=== PATIENT | male | born 1960 | race Caucasian/White ===

== ENCOUNTER 2018-08-23 12:11 | Outpatient (REF) | payer BC, SELFPAY ==
[2018-08-24 10:14] LABS: Lyme Ab w Rflx to Lyme Confirm Negative
[2018-08-25 20:04] LABS: Anaplasma phagocytophilum Negative (Negative); B. miyamotoi PCR Negative (Negative); Babesia divergens/MO-1 Negative (Negative); Babesia duncani Negative (Negative); Babesia microti Negative (Negative); Ehrlichia chaffeensis Negative (Negative); Ehrlichia ewingii/canis Negative (Negative); Ehrlichia muris eauclairensis Negative (Negative)
== END 2018-08-23 12:31 ==
LOC: NCHCN 12:11
PROVIDERS: PCP Internal Medicine; Visit Provider Nurse Practitioner Family
DX: R53.83 Other fatigue (principal); M25.50 Pain in unspecified joint
CPT/HCPCS: 86618; 87798

== ENCOUNTER 2019-06-02 11:17 | Outpatient (REF) | payer BC, SELFPAY ==
[2019-06-02 21:01] LABS: Abs Immature Grans 0.01 k/cumm (0.0-0.09); Absolute Basophil Count 0.01 k/cumm (0.0-0.2); Absolute Eosinophil Count 0.11 k/cumm (0.0-0.7); Absolute Lymphocyte Count 0.92 k/cumm (1.2-3.4); Absolute Monocyte Count 0.65 k/cumm (0.11-0.7); Absolute Neutrophil Count 4.43 k/cumm (1.2-6.7); Basophils % 0.2; Eosinophils % 1.8; HCT 44.9 % (40.0-50.0); HGB 14.8 g/dL (13.5-17.5); Immature Grans % 0.2; Mean Corpuscular Hemoglobin 27.9 pg (27.0-33.0); Mean Corpuscular Volume 84.7 fL (80-95); Mean Platelet Volume 11.7 fL (8.0-11.0); Monocytes % 10.6; Neutrophils % 72.2; Platelet Count 215 x1000/uL (130-400); RBC Distribution Width 13.7 % (11.8-14.1); White Blood Cell Count 6.13 k/cumm (4.4-10.8)
[2019-06-02 21:05] LABS: ALT 61 U/L (12-78); AST 64 U/L (15-37); Albumin 4.1 g/dL (3.4-5.0); Alkaline Phosphatase 91 U/L (46-116); Anion Gap 12.6 mmol/L (3-11); BUN 15 mg/dL (7-18); Bilirubin, Total 0.6 mg/dL (0.2-1.0); CO2 24.4 mmol/L (21.0-32.0); CREATININE 1.26 mg/dL (0.70-1.30); Calcium 8.8 mg/dL (8.5-10.1); Chloride 101 mmol/L (98-107); Estimated GFR 58.58 (mL/min/1.73m2); Glucose 100 mg/dL (70-100); Sodium 138 mmol/L (136-145); Total Protein 7.5 g/dL (6.4-8.2)
[2019-06-05 11:40] LABS: Lyme Ab w Rflx to Lyme Confirm Negative
[2019-06-06 17:17] LABS: Anaplasma phagocytophilum Negative (Negative); B. miyamotoi PCR Negative (Negative); Babesia divergens/MO-1 Negative (Negative); Babesia duncani Negative (Negative); Babesia microti Negative (Negative); Ehrlichia chaffeensis Negative (Negative); Ehrlichia ewingii/canis Negative (Negative); Ehrlichia muris eauclairensis Negative (Negative)
== END 2019-06-02 11:37 ==
LOC: NCHCN 11:17
PROVIDERS: PCP Internal Medicine; Visit Provider Nurse Practitioner Family
DX: R50.9 Fever, unspecified (principal); M25.50 Pain in unspecified joint; M79.10 Myalgia, unspecified site
CPT/HCPCS: 80053; 87798; 85025; 86618

== ENCOUNTER 2020-03-22 10:05 | Outpatient (REF) | payer BC, SELFPAY ==
[2020-03-22 20:42] LABS: Abs Immature Grans 0.01 k/cumm (0.0-0.09); Absolute Basophil Count 0.01 k/cumm (0.0-0.2); Absolute Eosinophil Count 0.08 k/cumm (0.0-0.7); Absolute Lymphocyte Count 2.22 k/cumm (1.2-3.4); Absolute Monocyte Count 0.61 k/cumm (0.11-0.7); Absolute Neutrophil Count 3.37 k/cumm (1.2-6.7); Basophils % 0.2; Eosinophils % 1.3; HCT 46.1 % (40.0-50.0); HGB 15.4 g/dL (13.5-17.5); Immature Grans % 0.2 %; Lymphocytes % 35.2; Mean Corp. HGB Concentration 33.4 g/dL (32.0-36.0); Mean Corpuscular Hemoglobin 28.1 pg (27.0-33.0); Mean Platelet Volume 11.7 fL (8.0-11.0); Monocytes % 9.7; Neutrophils % 53.4; Platelet Count 300 x1000/uL (130-400); RBC 5.49 m/cumm (4.50-6.00); RBC Distribution Width 13.3 % (11.8-14.1)
[2020-03-22 20:47] LABS: ALT 41 U/L (16-63); AST 36 U/L (15-37); Albumin 4.6 g/dL (3.4-5.0); Alkaline Phosphatase 86 U/L (46-116); Anion Gap 6.7 mmol/L (3-11); BUN 23 mg/dL (7-18); Bilirubin, Total 0.9 mg/dL (0.2-1.0); CO2 27.3 mmol/L (21.0-32.0); CREATININE 1.31 mg/dL (0.70-1.30); Calcium 9.8 mg/dL (8.5-10.1); Calculated LDL 150 mg/dL (<100); Chloride 102 mmol/L (98-107); Cholesterol 230 mg/dL (<200); Estimated GFR 55.81 (mL/min/1.73m2); Glucose 90 mg/dL (74-106); HDL Cholesterol 60 mg/dL (40-60); Potassium 5.1 mmol/L (3.5-5.1); Sodium 136 mmol/L (136-145); Total Protein 7.9 g/dL (6.4-8.2); Triglyceride 102 mg/dL (<150)
[2020-03-22 21:10] LABS: Bilirubin Negative (Negative); Blood Negative (Negative); Clarity Clear (Clear); Glucose Negative (Negative); Ketones Negative (Negative); Leukocyte Esterase Negative (Negative); Nitrite Negative (Negative); Urobilinogen 0.2 EU/dL (Up TO 0.2); pH 5.5 (5-8)
== END 2020-03-22 10:25 ==
LOC: NCHCN 10:05
PROVIDERS: PCP Internal Medicine; Visit Provider Internal Medicine
DX: Z00.00 Encounter for general adult medical examination without abnormal findings (principal); E78.5 Hyperlipidemia, unspecified; N50.819 Testicular pain, unspecified
CPT/HCPCS: 80053; 80061; 81003; 85025

== ENCOUNTER 2020-04-15 20:53 | Outpatient (REF) | payer BC, SELFPAY ==
[2020-04-18 19:38] LABS: Anaplasma phagocytophilum Negative (Negative); B. miyamotoi PCR Negative (Negative); Babesia divergens/MO-1 Negative (Negative); Babesia duncani Negative (Negative); Babesia microti Negative (Negative); Ehrlichia chaffeensis Negative (Negative); Ehrlichia ewingii/canis Negative (Negative); Ehrlichia muris eauclairensis Negative (Negative)
== END 2020-04-15 21:13 ==
LOC: NCHCN 20:53
PROVIDERS: PCP Internal Medicine; Visit Provider Internal Medicine
DX: M25.50 Pain in unspecified joint (principal)
CPT/HCPCS: 87798

== ENCOUNTER 2020-04-23 21:21 | Outpatient (REF) | payer BC, SELFPAY ==
[2020-04-25 10:48] LABS: Lyme Ab w Rflx to Lyme Confirm Negative (Negative)
== END 2020-04-23 21:41 ==
LOC: NCHCN 21:21
PROVIDERS: PCP Internal Medicine; Visit Provider Internal Medicine
DX: M25.50 Pain in unspecified joint (principal)
CPT/HCPCS: 86618

== ENCOUNTER 2020-05-14 01:40 | Outpatient (CLI) | payer BC, SELFPAY ==
--- NOTE | 2020-05-14 | DI.MRI_ITS ---
EXAM: MR CERVICAL SPINE WO CLINICAL HISTORY: LTNECK PAIN, M54.2,RT SHOULDER PAIN, M25.511 TECHNIQUE: Multiplanar multisequence MRI of the cervical spine was performed without intravenous con trast. COMPARISON: MR MRI - CERVICAL SPINE WO CONT from 08/21/2013 FINDINGS: The exam is somewhat limited by patient motion. BONES: Vertebral body heights are maintained. Intervertebral disc spaces are normal. Alignment is nor mal. Bone marrow signal intensity is within normal limits. CERVICAL CORD: Craniovertebral junction is unremarkable. The cervical cord is normal size and signal intensity. SOFT TISSUES: Unremarkable. C2-3: Endplate osteophytes, eccentric toward the left. Left-sided facet degenerative changes. Left- sided neural foraminal narrowing. C3-4: Endplate osteophytes project posteriorly. There are bilateral facet joint degenerative changes . There is bilateral neural foraminal narrowing C4-5: There is loss of disc height and broad-based disc osteophytes. There is narrowing of the centr al canal and neural foramen. C5-6: There is loss of disc height and mild broad-based endplate osteophytes. There is slight efface ment of the anterior CSF space. There is bilateral neural foraminal narrowing. C6-7: Minimal disc bulging. No neural foraminal narrowing or central canal stenosis. C7-T1: No disc herniation or bulge is identified. IMPRESSION: Multi level degenerative disc changes and facet degenerative changes cause bilateral neural foraminal narrowing. There is mild to moderate central canal stenosis from C2-3 through C5-6. DATA REPOSITORY:
== END 2020-05-14 02:00 ==
PROVIDERS: PCP Internal Medicine; Visit Provider Internal Medicine
DX: M47.812 Spondylosis without myelopathy or radiculopathy, cervical region (principal); M48.02 Spinal stenosis, cervical region; M25.511 Pain in right shoulder; M54.2 Cervicalgia
CPT/HCPCS: 72141

== ENCOUNTER 2021-05-23 13:27 | Outpatient (REF) | payer BC, SELFPAY ==
[2021-05-26 10:38] LABS: HIV-1/2 Ag & Ab Screen Negative (Negative)
[2021-05-26 11:53] LABS: Hepatitis A Antibody IgM Negative (Negative); Hepatitis B Core Antibody Negative (Negative); Hepatitis B surface Ag Negative (Negative); Hepatitis C Ab w Rflx HCV PCR Negative (Negative)
== END 2021-05-23 13:28 | disposition home or self-care (01) ==
LOC: NCHCN 13:27
PROVIDERS: PCP Internal Medicine; Visit Provider Family Medicine
DX: Z11.3 Encounter for screening for infections with a predominantly sexual mode of transmission (principal); Z11.4 Encounter for screening for human immunodeficiency virus [HIV]; Z11.59 Encounter for screening for other viral diseases
CPT/HCPCS: 86704; 86709; 86803; 87340; 87389

== ENCOUNTER 2022-04-27 07:03 | Day surgery (SDC) | payer BC, SELFPAY ==
--- NOTE | 2022-04-26 18:48 | ANES.PREOP_ITS ---
General Info Date of Service Date Performed: 04/27/22 Height: 5 ft 7 in Weight: 72.376 kg Body Mass Index (BMI): 25.0 Surgical Procedure: Operation Date: 04/27/22 08:20 Proposed Procedure Side Surgeon p Colonoscopy Geri Chavarria MD Meds Allergies and Home Medications Allergies Allergy/AdvReac Type Severity Reaction Status Date / Time No Known Allergies Allergy Unverified 04/27/22 07:27 Home Medication Medication Instructions Recorded mirtazapine 15 mg tablet 15 mg PO DAILY 08/18/21 bisacodyl 5 mg tablet,delayed 5 mg PO ONCE #4 tabs 04/03/22 release (Dulcolax (bisacodyl)) polyethylene glycol 3350 17 17 g PO ONCE #238 grams 04/03/22 gram/dose oral powder Current Visit Medications: Current Medications Generic Name Dose Route Start Last Admin Trade Name Freq PRN Reason Stop Dose Admin Ringer's Solution 1,000 mls @ 80 mls/hr 04/27/22 06:00 IV 05/24/22 23:59 INFUSION HAYDE IV Miscellaneous Supplies 1 each 04/27/22 06:00 Iv Access IV 05/24/22 23:59 DIRECTED HAYDE Sodium Chloride 0 ml 04/27/22 06:00 Normal Saline Flush 10 Ml Syr IV 05/24/22 23:59 PRN PRN Sodium Chloride 0 ml 04/27/22 06:00 Normal Saline 10 Ml Vial IJ 05/24/22 23:59 DIRECTED PRN Sterile Water 0 ml 04/27/22 06:00 Water,Injection,Sterile 10 Ml Vial IJ 05/24/22 23:59 DIRECTED PRN PFSH Active Problems Active Problems: Problem Status Onset Code Tinnitus, bilateral H93.13 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 reports the disk was bulging and they removed material History of colonoscopy (~04/09/15) Normal Dr. Renetta Patel ([facility]) Hx of endoscopic retrograde cholangiopancreatography Hx of wisdom tooth extraction Tobacco Smoking/Tobacco Use Status: Never Alcohol Alcohol Intake: current Alcohol intake frequency: a few times a week Alcohol type: beer and wine Substance Use Substance use: Never Substance use type: does not use Vital Signs and Lab Results Vital Signs Most Recent Vital Signs in EMR: Temp Pulse Resp BP Pulse Ox 36.6 C 63 14 123/81 100 04/27/22 07:31 04/27/22 07:31 04/27/22 07:31 04/27/22 07:31 04/27/22 07:31 Lab Results Blood Type / Crossmatch: No Data to Display Complete Blood Count: No Data to Display Complete Metabolic Panel: No Data to Display Liver Function Panel: No Data to Display Coagulation Panel: No Data to Display Cardiac Panel: No Data to Display Arterial Blood Gas: No Data to Display Venous Blood Gas: No Data to Display Pancreas Panel: No Data to Display Thyroid Panel: No Data to Display Infectious Disease: No Data to Display Blood Cultures: No Data to Display Toxicology Panel: No Data to Display Anesthesia Assessment and Plan Anesthesia History Personal History: No History of Anesthesia Complications Family History: No Family History of Anesthesia Complications Exercise Tolerance Exercise Tolerance: Metabolic Equivalents>4 Cardiac & Pulmonary Exam Cardiac Exam: Normal S1/S2 Heart Sounds Pulmonary Exam: Clear Bilateral Breath Sounds Implantable Cardiac Device Does patient have a Pacemaker or an ICD?: No Airway Exam Known Difficult Airway: No Mallampati Class: 3 Mouth Opening: Normal (> 3cm) Thyromental Distance: Greater than 3 cm Neck Range of Motion: Full ROM Neck Circumference: Normal Teeth Condition: Normal Dentition ASA Classification ASA Score: ASA 2 Emergency Case?: No NPO Status NPO Status: NPO Clears >2 hours, Solids >8 hours Anesthesia Plan Resuscitation Status: Full Code Anesthesia Technique: General Anesthesia Airway Planned: Natural Airway Monitors Used: Standard Monitors Preoperative Comments:: 61 yo male for colo. 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
--- NOTE | 2022-04-27 06:17 | W.COLOREPORT ---
Colonoscopy Report Date of procedure: 04/27/22 Pre-op diagnosis general: Colon Cancer Screening Post-op diagnosis procedure note: other (diverticulosis and one polyp) Procedure: COlonoscopy with polypectomy Surgeon: Geri Chavarria Anesthesia Type: General:No Airway Estimated blood loss (mL): 2 Pathology: other (escending polyp) Complications: None Disposition: same day Indications: The patient is here for Colonoscopy pre-op. His last screening was in 2014 and was unremarkable. He has a family history of colon cancer in maternal uncles x 2. He has not had any bowel habit changes. -Discussed colonoscopy bowel prep as well as the procedure. Discussed possible complications of the procedure to include bleeding, pain, perforation, missed small lesion/polyp, sore throat, aspiration and adverse reaction to the medications. Questions were answered to patient?s satisfaction. No guarantees were implied or given.? Prep: Miralax/Dulcolax Procedure Start Time: 08:12 Procedure End Time: 08:37 Retraction Time: 16 minutes Findings: one small polyp mild gardner-diverticulosis Procedure Description: After informed consent was obtained the patient was taken to the procedure room and placed in a left decubitous position. Monitors were applied and a time out was done. The patients name, date of , procedure, allergies to medications and metal in their body was reviewed. The patient was then sedated. Once sedated and comfortable a rectal exam was done. External exam was normal. Internal exam revealed a normal sphincter tone and no palpable masses. The prostate fit smooth and enlarged. The scope was then introduced and retro-flexed. [No internal hemorrhoids, polyps or masses were identified on retro-flexion. The scope was then advanced to the cecum without difficulty. The ileocecal vlave and appendiceal orifice were identified. The prep was good. The scope was then slowly retracted over 16 minutes back into the rectum. Polyps were removed awith cold forceps in the descending colon x1. There was mild gardner- diverticulosis noted. The scope was removed and the patient was woken up and taken back to Same day surgery in stable condition. The patient tolerated the procedure well and there were no immediate complications. Follow up: The patient should follow up in 5 years unless they develop changes in bowel habits or other new gastrointestinal complaints.
--- NOTE | 2022-04-27 06:18 | PDOC.DSDIS_ITS ---
Discharge Plan Disposition Patient Disposition: HOME Condition: Good Discharge Details Reason For Visit: colon cancer screening Attending Provider: Geri Chavarria Primary Care Provider: Gildardo Calles Home Meds and New Rx's Prescriptions: Continued mirtazapine 15 mg tablet 15 mg PO DAILY Discontinued bisacodyl [Dulcolax (bisacodyl)] 5 mg tablet,delayed release (DR/EC) 5 mg PO ONCE Qty: 4 0RF Rx Instructions: Take according to provider's instructions for colonoscopy prep. polyethylene glycol 3350 17 gram/dose powder 17 g PO ONCE Qty: 238 0RF Rx Instructions: To be taken as directed by prescriber's office for colonoscopy prep. Discharge Instructions Instructions: Diverticulosis (DC) Additional Instructions: Findings: one polyp Diverticulosis Follow up: 5 years Please call if you develop: fevers >101.5 Nausea or Vomiting Abdominal pain that is not transient Rectal bleeding that is more then a tbsp A hard abdomen and inability to pass gas DAY SURGERY UNIT POST ENDOSCOPY INSTRUCTIONS Instructions for everyone who is given Anesthesia: For your safety, please do the following for the next 24 Hours: a. Do not drive or operate dangerous equipment b. Do not drink alcohol beverages or use any recreational drugs for the first 24 hours or while taking pain medications. The medications in your body may have a reaction that can be dangerous. c. Do not make any important decisions or sign any important papers 1. Generally there are no restrictions on your activity after a day or so has go ne by, but you may feel a bit fatigued for a few days. 2. After you arrive home you may have a light meal and return to a normal diet as you can tolerate it without feeling sick to your stomach. 3. After surgery, you may feel pain or discomfort. This should be only transient, but if it persists please contact your doctor. 4. If there are any questions regarding the findings of your procedure, please feel free to contact your doctor. 6. If you are unable to contact your doctor with a problem, contact the hospital at [phone]. 7. Continue all your regular medications unless directed otherwise. I understand the above instructions and have no questions. Signature of Patient or Responsible Adult Escort Date/Time Name of Responsible Adult Escort Signature of Nurse Date/Time Activity:: Activity as Tolerated Diet:: low fiber Discharge Orders Discharge Orders: Discharge Order (Routine); Ordered 04/27/22 Ordered By: Geri Chavarria
[2022-04-27 07:31] VITALS: BP 123/81; PULSE 63; RESP 14; TEMP 36.6; O2SAT 100
[2022-04-27] MEDS: Lactated Ringers 1,000 ML 80 ML IV (07:45)
[2022-04-27 07:59] VITALS: BMI 25.0
--- NOTE | 2022-04-27 08:15 | BOWEL_PTH ---
PATIENT: Gama Cohen LOC: [facility] U#:[id number] AGE/SX: 61/M ROOM: RE04/27/[address]: Geri Chavarria MD : [id number] BED: DIS: 04/27/2022 SPEC #: [id number] RECD: 04/27/22 10:40 STATUS: JEN REQ #: [id number] FRANCISCA: 04/27/22 08:[address]: Geri Chavarria DEPT: Surgical Specimen RECD BY: Emmie Olson ENTERED: 04/27/22 10:41 SP TYPE: Bowel OTHR DR: Gildardo Calles Tissues: 1 - BIOPSY BOWEL Procedures: GROSS AND MICRO LEVEL 4 Comments: [id number]
[2022-04-27 08:45] VITALS: BP 100/68; PULSE 53; RESP 15; TEMP 36.1; O2SAT 97
--- NOTE | 2022-04-27 08:55 | W.ANESPOSTOP ---
Postoperative Evaluation Date, Time and Location Date Performed: 04/27/22 Time Performed: 08:55 Patient Location: Day Surgery Unit Vital Signs Most Recent Imported Vital Signs: Most Recent Vital Signs Temp Pulse Resp BP Pulse Ox 36.1 C L 53 L 15 100/68 97 04/27/22 08:45 04/27/22 08:45 04/27/22 08:45 04/27/22 08:45 04/27/22 08:45 Pain Score Most Recent Pain Score: Most Recent Pain Score Pain Level 0 04/27/22 08:45 Assessment Mental Status: Arousable with meaningful communication Airway and Respiratory Function: Patent airway with normal (patient baseline) respiratory exam Cardiovascular Function: Hemodynamically Stable Hydration Status: Adequately Hydrated Nausea & Vomiting: No Nausea or Vomiting Pain: Pt. Denies Any Pain Peripheral Nerve Block: Patient did not receive a nerve block
[2022-04-27 09:12] VITALS: BP 113/82; PULSE 55; RESP 15; TEMP 36.2; O2SAT 98
== END 2022-04-27 09:46 | disposition home or self-care (01) ==
PROVIDERS: PCP Family Medicine; Visit Provider Surgery
PROC: 0DJD8ZZ Inspection of Lower Intestinal Tract, Via Natural or Artificial Opening Endoscopic (ICD-10-PCS; CPT 45378; principal; 2022-04-27 08:15)
DX: Z12.11 Encounter for screening for malignant neoplasm of colon (principal); Z80.0 Family history of malignant neoplasm of digestive organs; K63.5 Polyp of colon; K57.30 Diverticulosis of large intestine without perforation or abscess without bleeding
CPT/HCPCS: 45380; 88305

== ENCOUNTER 2022-08-04 17:02 | Outpatient (REF) | payer BC, SELFPAY ==
[2022-08-04 15:13] LABS: Anion Gap 5.7 mmol/L (3-11); BUN 21 mg/dL (7-18); CO2 27.3 mmol/L (21.0-32.0); CREATININE 1.2 mg/dL (0.70-1.30); Calcium 9.4 mg/dL (8.5-10.1); Calculated LDL 190 mg/dL (<100); Chloride 104 mmol/L (98-107); Cholesterol 270 mg/dL (<200); Estimated GFR 67.95 (mL/min/1.73m2); Glucose 99 mg/dL (74-106); HDL Cholesterol 61 mg/dL (40-60); Potassium 4.4 mmol/L (3.5-5.1); Sodium 137 mmol/L (136-145); Triglyceride 99 mg/dL (<150)
== END 2022-08-04 17:03 | disposition home or self-care (01) ==
LOC: NCHCN 17:02
PROVIDERS: PCP Family Medicine; Visit Provider Family Medicine
DX: E78.5 Hyperlipidemia, unspecified (principal)
CPT/HCPCS: 80048; 80061

== ENCOUNTER 2022-12-07 14:27 | Outpatient (REF) | payer BC, SELFPAY ==
[2022-12-07 15:33] LABS: ALT 57 U/L (16-63); AST 41 U/L (15-37)
[2022-12-07 22:26] LABS: PSA, Screening 0.8 ng/mL (<=4.5)
== END 2022-12-07 14:28 | disposition home or self-care (01) ==
LOC: NCHCN 14:27
PROVIDERS: PCP Family Medicine; Visit Provider Family Medicine
DX: E78.5 Hyperlipidemia, unspecified (principal); N40.1 Benign prostatic hyperplasia with lower urinary tract symptoms; Z12.5 Encounter for screening for malignant neoplasm of prostate
CPT/HCPCS: 84153; 84450; 84460

== ENCOUNTER 2023-03-22 15:02 | Outpatient (REF) | payer BC, SELFPAY ==
[2023-03-22 16:03] LABS: Abs Immature Grans 0.01 10^3/uL (0.0-0.06); Absolute Basophil Count 0.02 10^3/uL (0.0-0.2); Absolute Eosinophil Count 0.13 10^3/uL (0.0-0.7); Absolute Lymphocyte Count 1.54 10^3/uL (1.2-3.4); Absolute Monocyte Count 0.47 10^3/uL (0.1-0.8); Absolute Neutrophil Count 4.01 10^3/uL (1.2-6.7); Basophils % 0.3; Eosinophils % 2.1; HCT 41.6 % (40.0-50.0); HGB 13.6 g/dL (13.5-17.5); Immature Grans % 0.2; Lymphocytes % 24.9; MCH 28.1 pg (27.0-33.0); MCHC 32.7 % (32.0-36.0); MCV 86 fL (80-95); MPV 11.5 fL (8.0-11.0); Monocytes % 7.6; Neutrophils % 64.9; Platelet Count 244 10^3/uL (130-400); RBC 4.84 10^6/uL (4.36-5.78); RDW 12.5 % (11.8-14.1); RDW-SD 39.3 fL; WBC 6.18 10^3/uL (4.4-10.8)
[2023-03-22 16:12] LABS: ESR 10 mm/hr (0-20)
[2023-03-22 16:48] LABS: ALT 51 U/L (16-63); AST 49 U/L (15-37); Albumin 3.8 g/dL (3.4-5.0); Alkaline Phosphatase 93 U/L (46-116); Anion Gap 0.9 mmol/L (3-11); BUN 15 mg/dL (7-18); Bilirubin, Total 0.5 mg/dL (0.2-1.0); CO2 30.1 mmol/L (21.0-32.0); CREATININE 1.2 mg/dL (0.70-1.30); Calcium 9.3 mg/dL (8.5-10.1); Chloride 104 mmol/L (98-107); Creatine Kinase 608 U/L (39-308); Estimated GFR 67.95 (mL/min/1.73m2); Glucose 108 mg/dL (74-106); Potassium 4.5 mmol/L (3.5-5.1); Sodium 135 mmol/L (136-145); TSH (W/Ref FT4) 1.74 uIU/mL (0.36-3.74); Total Protein 7.5 g/dL (6.4-8.2)
[2023-03-24 10:31] LABS: Lyme Ab w Rflx to Lyme Confirm Negative (Negative)
[2023-03-26 16:08] LABS: Anaplasma phagocytophilum Negative (Negative); B. miyamotoi PCR Negative (Negative); Babesia divergens/MO-1 Negative (Negative); Babesia duncani Negative (Negative); Babesia microti Negative (Negative); Ehrlichia chaffeensis Negative (Negative); Ehrlichia ewingii/canis Negative (Negative); Ehrlichia muris eauclairensis Negative (Negative)
== END 2023-03-22 15:03 | disposition home or self-care (01) ==
LOC: NCHCN 15:02
PROVIDERS: PCP Family Medicine; Visit Provider Family Medicine
DX: Z00.00 Encounter for general adult medical examination without abnormal findings (principal); F41.8 Other specified anxiety disorders; M25.50 Pain in unspecified joint; R25.2 Cramp and spasm; R25.3 Fasciculation; E78.5 Hyperlipidemia, unspecified
CPT/HCPCS: 80053; 82550; 85652; 87798; 83735; 84443; 85025; 86618

== ENCOUNTER 2023-04-27 20:04 | Outpatient (REF) | payer BC, SELFPAY ==
[2023-04-27 15:03] LABS: ALT 34 U/L (16-63); AST 35 U/L (15-37); Albumin 4.1 g/dL (3.4-5.0); Alkaline Phosphatase 80 U/L (46-116); Bilirubin, Direct 0.1 mg/dL (0.0-0.2); Bilirubin, Total 0.6 mg/dL (0.2-1.0); Creatine Kinase 251 U/L (39-308); Total Protein 7.1 g/dL (6.4-8.2)
== END 2023-04-27 20:05 | disposition home or self-care (01) ==
LOC: NCHCN 20:04
PROVIDERS: PCP Family Medicine; Visit Provider Family Medicine
DX: E78.5 Hyperlipidemia, unspecified (principal)
CPT/HCPCS: 80076; 82550

== ENCOUNTER 2023-06-22 17:27 | Outpatient (REF) | payer BC, SELFPAY ==
[2023-06-22 18:29] LABS: ALT 47 U/L (16-63); AST 39 U/L (15-37); Creatine Kinase 328 U/L (39-308)
== END 2023-06-22 17:28 | disposition home or self-care (01) ==
LOC: NCHCN 17:27
PROVIDERS: PCP Family Medicine; Visit Provider Family Medicine
DX: E78.5 Hyperlipidemia, unspecified (principal); R25.3 Fasciculation; R26.2 Difficulty in walking, not elsewhere classified
CPT/HCPCS: 82550; 84450; 84460

== ENCOUNTER 2023-08-19 10:13 | Outpatient (REF) | payer BC, SELFPAY ==
[2023-08-19 14:22] LABS: HCT 44.3 % (40.0-50.0); HGB 14.2 g/dL (13.5-17.5); MCH 27.3 pg (27.0-33.0); MCHC 32.1 % (32.0-36.0); MCV 85 fL (80-95); Platelet Count 264 10^3/uL (130-400); RDW 13.2 % (11.8-14.1); RDW-SD 40.6 fL
[2023-08-19 14:54] LABS: ALT 57 U/L (16-63); AST 66 U/L (15-37); Albumin 4.4 g/dL (3.4-5.0); Alkaline Phosphatase 82 U/L (46-116); Anion Gap 9.7 mmol/L (3-11); BUN 17 mg/dL (7-18); CO2 27.3 mmol/L (21.0-32.0); CREATININE 1.3 mg/dL (0.70-1.30); Calcium 9.7 mg/dL (8.5-10.1); Calculated LDL 89 mg/dL (<100); Chloride 103 mmol/L (98-107); Cholesterol 160 mg/dL (<200); Estimated GFR 61.35 (mL/min/1.73m2); Glucose 101 mg/dL (74-106); HDL Cholesterol 61 mg/dL (40-60); Potassium 4.5 mmol/L (3.5-5.1); Sodium 140 mmol/L (136-145); Total Protein 7.7 g/dL (6.4-8.2); Triglyceride 51 mg/dL (<150)
[2023-08-19 15:18] LABS: Bilirubin, Total 0.6 mg/dL (0.2-1.0)
== END 2023-08-19 10:14 | disposition home or self-care (01) ==
LOC: NCHCN 10:13
PROVIDERS: PCP Family Medicine; Visit Provider Family Medicine
DX: R25.3 Fasciculation (principal); F41.8 Other specified anxiety disorders; N40.1 Benign prostatic hyperplasia with lower urinary tract symptoms; E78.5 Hyperlipidemia, unspecified; Z00.00 Encounter for general adult medical examination without abnormal findings
CPT/HCPCS: 80053; 80061; 85027

== ENCOUNTER 2024-08-22 16:14 | Outpatient (REF) | payer MEDICARE, BC, SELFPAY ==
[2024-08-22 17:49] LABS: ALT 46 U/L (16-63); AST 41 U/L (15-37); Alkaline Phosphatase 95 U/L (46-116); Anion Gap 8.8 mmol/L (3-11); BUN 17 mg/dL (7-18); CO2 29.2 mmol/L (21.0-32.0); CREATININE 1.3 mg/dL (0.70-1.30); Calcium 9.2 mg/dL (8.5-10.1); Chloride 105 mmol/L (98-107); Estimated GFR 60.96 (mL/min/1.73m2); Glucose 93 mg/dL (74-106); Potassium 4.6 mmol/L (3.5-5.1); Sodium 143 mmol/L (136-145); Total Protein 7.1 g/dL (6.4-8.2)
== END 2024-08-22 16:15 | disposition home or self-care (01) ==
LOC: NCHCN 16:14
PROVIDERS: PCP Family Medicine; Visit Provider Family Medicine
DX: Z00.00 Encounter for general adult medical examination without abnormal findings (principal)
CPT/HCPCS: 80053

== ENCOUNTER → 2024-11-21 10:44 | Outpatient (BNVA) | payer MEDICARE, BC, SELFPAY | PROVIDERS: PCP Family Medicine; Referring Provider Family Medicine; Visit Provider Psychiatry & Neurology Neurology | DX: R25.3 Fasciculation (principal); M48.02 Spinal stenosis, cervical region; R74.8 Abnormal levels of other serum enzymes | CPT/HCPCS: 99214 ==

== ENCOUNTER 2025-06-12 15:31 | Outpatient (REF) | payer MEDICARE, BC, SELFPAY ==
[2025-06-12 15:26] LABS: Abs Immature Grans 0.02 10^3/uL (0.0-0.06); HCT 44.7 % (40.0-50.0); HGB 14.7 g/dL (13.5-17.5); Immature Grans % 0.3 %; MCH 27.9 pg (27.0-33.0); MCHC 32.9 % (32.0-36.0); MCV 85 fL (80-95); MPV 11.2 fL (8.0-11.0); Platelet Count 238 10^3/uL (130-400); RBC 5.26 10^6/uL (4.36-5.78); RDW 12.9 % (11.8-14.1); RDW-SD 39.5 fL; WBC 7.14 10^3/uL (4.4-10.8)
[2025-06-12 15:39] LABS: ESR 7 mm/hr (0-20)
[2025-06-12 15:44] LABS: ALT 48 U/L (16-63); AST 48 U/L (15-37); Albumin 4.4 g/dL (3.4-5.0); Alkaline Phosphatase 80 U/L (46-116); Anion Gap 6.2 mmol/L (3-11); BUN 24 mg/dL (7-18); Bilirubin, Total 0.7 mg/dL (0.2-1.0); CO2 29.8 mmol/L (21.0-32.0); Calcium 9.3 mg/dL (8.5-10.1); Chloride 103 mmol/L (98-107); Creatine Kinase 607 U/L (39-308); Estimated GFR 60.96 (mL/min/1.73m2); Glucose 101 mg/dL (74-106); Potassium 4.5 mmol/L (3.5-5.1); Sodium 139 mmol/L (136-145); TSH (W/Ref FT4) 1.39 uIU/mL (0.36-3.74); Total Protein 7.4 g/dL (6.4-8.2)
[2025-06-13 09:49] LABS: Lyme Ab w Rflx to Lyme Confirm Negative (Negative)
[2025-06-15 00:34] LABS: B. miyamotoi PCR Negative (Negative); Babesia divergens/MO-1 Negative (Negative); Ehrlichia muris eauclairensis Negative (Negative)
== END 2025-06-12 15:32 | disposition home or self-care (01) ==
LOC: NCHCN 15:31
PROVIDERS: PCP Family Medicine; Visit Provider Family Medicine
DX: M79.18 Myalgia, other site (principal)
CPT/HCPCS: 80053; 82550; 85652; 87798; 84443; 85025; 86618

== ENCOUNTER 2025-08-28 10:38 | Outpatient (REF) | payer MEDICARE, BC, SELFPAY ==
[2025-08-28 14:42] LABS: Cholesterol 214 mg/dL (<200); HDL Cholesterol 73 mg/dL (>40)
[2025-08-28 15:05] LABS: Creatine Kinase 462 U/L (46-171)
== END 2025-08-28 10:39 | disposition home or self-care (01) ==
LOC: NCHCN 10:38
PROVIDERS: PCP Family Medicine; Visit Provider Family Medicine
DX: E78.5 Hyperlipidemia, unspecified (principal)
CPT/HCPCS: 80061; 82550